=== PATIENT | female | born 1950 | race African-American/Black ===

== ENCOUNTER 2022-04-22 12:26 | Inpatient (IN) | payer OTHER ==
[~2022-04-22] VITALS: Ht 162.6 cm; Wt 75.3 kg
[~2022-04-22 12:26] MED LIST: ALBU108A5 IN; ATOR10TA52 PO; DILT60TA PO; FLUT1AER7 IN; FLUT50SP28; FOLI1TAB6 PO; ISOS1TAB28 PO; LISI-716 PO; METH2.5T PO; METO25TA93 PO; PANT40TA2 PO; POLY33504 PO; SULF500T2 PO
[2022-04-22 13:27] LABS: Basophils # (auto) 0.1 10 ^3/uL (0-0.2); Hematocrit 30.3 % (36.0-46.0); Red Cell Distribution Width 16.2 % (11.8-14.3)
[2022-04-22 13:29] LABS: Basophils % (auto) 0.8 % (0.0-2.0); Eosinophils # (auto) 0.1 10 ^3/uL (0-0.8); Eosinophils % (auto) 1.3 % (0.0-7.0); Hemoglobin 10.1 g/dL (12.2-16.2); Lymphocytes % (auto) 10.5 % (10.0-50.0); Mean Corpuscular Hemoglobin 25.8 pg (28.0-32.0); Mean Corpuscular Hgb Conc. 33.4 g/dL (32.0-36.0); Mean Corpuscular Volume 77.1 fL (80.0-100.0); Neutrophils # (auto) 7.7 10 ^3/uL (1.6-8.6); Neutrophils % (auto) 77.4 % (37.0-80.0); Red Blood Cells 3.93 10^6/uL (4.0-5.20)
[2022-04-22 13:53] LABS: Calcium 8.5 mg/dL (8.5-10.1); Potassium 3.5 mmol/L (3.5-5.1)
[2022-04-22 13:59] LABS: BUN/Creatinine Ratio 10.2; Bilirubin, Total 0.4 mg/dL (0.2-1.0); Total Protein 9.4 g/dL (6.4-8.2)
[2022-04-22] MEDS ORDERED: SODIUM CHLORIDE 0.9% 1,000 ML IV ONE (14:00)
[2022-04-22] MEDS ORDERED: ASPirin 81 mg TAB PO ONE (14:00)
[2022-04-22 14:09] LABS: INR 1.14 (0.9-1.15); Partial Thromboplastin Time 26.5 sec (23.6-33.0)
[2022-04-22 14:29] LABS: Urine Bacteria FEW /hpf (None Seen); Urine Blood 1+ /uL (Negative); Urine Mucus FEW (None Seen); Urine Specific Gravity 1.024 (1.001-1.035); Urine WBC 15 /hpf (0 - 5)
[2022-04-22] MEDS ORDERED: AZITHROMYCIN 500MG/ 250ML 250 ML IV ONE (16:30)
[2022-04-22] MEDS ORDERED: cefTRIAXone 1GM/50ML D5W 50 ML IV ONE (16:30)
[2022-04-22] MEDS ORDERED: IOHEXOL 350 MG/ML 100ML IJ ONE (16:44)
[2022-04-22] MEDS ORDERED: ALBUTEROL SULF 2.5 MG/0.5ML(0.5%) NEB SOLN NEB PRN ×2 (21:15)
[2022-04-22] MEDS ORDERED: ATORVASTATIN 20 MG TAB PO SCH (22:00)
[2022-04-22] MEDS ORDERED: ALBUTEROL SULF 2.5 MG/0.5ML(0.5%) NEB SOLN ONE (22:15)
[2022-04-22] MEDS ORDERED: MORPHINE SULFATE INJ 2 MG/ml SYRG IV PRN (23:00)
[2022-04-22] MEDS ORDERED: TEMAZEPAM 15 MG CAP PO PRN (23:00)
[2022-04-22] MEDS ORDERED: ACETAMINOPHEN 325 MG TAB PO PRN (23:00)
[2022-04-22] MEDS ORDERED: ONDANSETRON HCL 4 MG/2 ML VIAL IV PRN (23:00)
[2022-04-22] MEDS ORDERED: NITROGLYCERIN 0.4 MG SL TAB SL PRN (23:00)
[2022-04-23] MEDS ORDERED: ACETAMINOPHEN 325 MG TAB PO ONE (04:45)
[2022-04-23] MEDS: METOPROLOL TARTRATE 25 MG TAB PO SCH ×2 (05:26→09:05)
[2022-04-23 05:30] LABS: Basophils # (auto) 0 10 ^3/uL (0-0.2); Eosinophils # (auto) 0.1 10 ^3/uL (0-0.8); Lymphocytes # (auto) 0.7 10 ^3/uL (0.4-5.4); Neutrophils # (auto) 7.1 10 ^3/uL (1.6-8.6)
[2022-04-23 05:32] LABS: Basophils % (auto) 0.3 % (0.0-2.0); Eosinophils % (auto) 0.9 % (0.0-7.0); Hematocrit 29.1 % (36.0-46.0); Hemoglobin 9.5 g/dL (12.2-16.2); Lymphocytes % (auto) 8.4 % (10.0-50.0); Mean Corpuscular Hemoglobin 25.5 pg (28.0-32.0); Mean Corpuscular Hgb Conc. 32.8 g/dL (32.0-36.0); Mean Corpuscular Volume 77.7 fL (80.0-100.0); Monocytes % (auto) 10.7 % (0.0-12.0); Neutrophils % (auto) 79.7 % (37.0-80.0); Red Blood Cells 3.74 10^6/uL (4.0-5.20); Red Cell Distribution Width 16.3 % (11.8-14.3); White Blood Cell 8.9 10^3/uL (4.4-10.8)
[2022-04-23 05:43] LABS: Albumin 2.6 g/dL (3.4-5.0); Calcium 8.3 mg/dL (8.5-10.1); Potassium 3.4 mmol/L (3.5-5.1)
[2022-04-23 05:48] LABS: BUN/Creatinine Ratio 9.4; Bilirubin, Total 0.5 mg/dL (0.2-1.0); Total Protein 8.5 g/dL (6.4-8.2)
[2022-04-23] MEDS ORDERED: cefTRIAXone 1GM/50ML D5W 50 ML IV SCH (09:00)
[2022-04-23] MEDS ORDERED: AZITHROMYCIN 500MG/ 250ML 250 ML IV SCH (10:00)
[2022-04-23] MEDS ORDERED: ISOSORBIDE MONONITRATE ER 60 MG TAB PO SCH (10:00)
[2022-04-23] MEDS ORDERED: ENOXAPARIN SOD 40 MG/0.4 ML SYRINGE SC SCH (10:00)
[2022-04-23] MEDS ORDERED: PANTOPRAZOLE 40 MG TAB PO SCH (10:00)
[2022-04-23] MEDS ORDERED: LISINOPRIL 10 MG TAB PO SCH (10:00)
[2022-04-23] MEDS ORDERED: dilTIAZem 120MG ER CAP PO SCH (10:00)
[2022-04-23 13:00] VITALS: BP 128/79
[2022-04-23] MEDS ORDERED: DOXY-332 PO (13:48)
== END 2022-04-23 14:19 | disposition home or self-care (01) | DRG 193 ==
LOC: ER 12:26 → TELE 22:51
PROVIDERS: ADMIT Nurse Practitioner; ATTEND Internal Medicine
DX: J18.9 Pneumonia, unspecified organism (principal); J96.01 Acute respiratory failure with hypoxia; J44.0 Chronic obstructive pulmonary disease with (acute) lower respiratory infection; J44.1 Chronic obstructive pulmonary disease with (acute) exacerbation; E78.5 Hyperlipidemia, unspecified; I11.0 Hypertensive heart disease with heart failure; M19.90 Unspecified osteoarthritis, unspecified site; E88.09 Other disorders of plasma-protein metabolism, not elsewhere classified; M06.9 Rheumatoid arthritis, unspecified; Z20.822 Contact with and (suspected) exposure to COVID-19; Z90.710 Acquired absence of both cervix and uterus; Z82.49 Family history of ischemic heart disease and other diseases of the circulatory system; Z90.49 Acquired absence of other specified parts of digestive tract; Z88.6 Allergy status to analgesic agent; Z88.0 Allergy status to penicillin; Z68.28 Body mass index [BMI] 28.0-28.9, adult
CPT/HCPCS: 36415; 71046; 71275; 80053; 81001; 83735; 83880; 84443; 84484; 85025; 85379; 85610; 85730; 93005; 93970; 96365; 96368; 96375; G0378; J0696